=== PATIENT | male | born 1995 | race Caucasian/White ===

== ENCOUNTER 2017-10-20 12:17 | Emergency (ER) | payer MEDICAID, OTHER ==
[~2017-10-20] VITALS: Ht 175.3 cm; Wt 68.0 kg
[2017-10-20 12:34] VITALS: BP 147/88
[2017-10-20] MEDS ORDERED: IBUPROFEN 800MG TABLET PO ONE (14:45)
== END 2017-10-20 15:46 | disposition left against medical advice (07) ==
LOC: ER 13:06
DX: S93.402A Sprain of unspecified ligament of left ankle, initial encounter (principal); X58.XXXA Exposure to other specified factors, initial encounter; Y93.89 Activity, other specified; Y92.89 Other specified places as the place of occurrence of the external cause; Y99.8 Other external cause status
CPT/HCPCS: 73610; 99284

== ENCOUNTER 2017-12-04 09:15 | Emergency (ER) | payer OTHER | END 2017-12-04 09:43 | disposition left against medical advice (07) | LOC: ER 09:15 | DX: Z53.21 Procedure and treatment not carried out due to patient leaving prior to being seen by health care provider (principal) ==

== ENCOUNTER 2022-09-24 05:16 | Emergency (ER) | payer OTHER ==
[2022-09-24 05:23] VITALS: PULSE 85
== END 2022-09-24 08:08 | disposition left against medical advice (07) ==
LOC: ER 05:16
DX: Z53.21 Procedure and treatment not carried out due to patient leaving prior to being seen by health care provider (principal)
CPT/HCPCS: 99281

== ENCOUNTER 2023-06-24 01:51 | Emergency (ER) | payer SELFPAY ==
[~2023-06-24] VITALS: Ht 175.3 cm; Wt 91.0 kg
[2023-06-24 01:56] VITALS: BP 189/117; TEMP 98.7; O2SAT 100
[2023-06-24 02:34] LABS: BASOPHILS % 0.9 % (0.0-2.0); EOSINOPHILS % 2.7 % (0.0-5.0); HEMATOCRIT. 50.6 % (42.0-52.0); HEMOGLOBIN. 17.8 g/dL (14.0-18.0); LYMPHOCYTES % 34.8 % (20.0-50.0); MEAN CORPUSCULAR HEMOGLOBIN 31.3 pg (28.0-32.0); MEAN CORPUSCULAR HGB CONC 35.2 g/dL (31.0-37.0); MEAN CORPUSCULAR VOLUME 89.1 fL (80.0-94.0); MEAN PLATELET VOLUME 7.3 fl (7.4-10.4); MONOCYTES % 10.9 % (2.0-8.0); NEUTROPHILS % 50.7 % (40.0-76.0); PLATELET 334 x1000/uL (130-400); RED BLOOD CELL COUNT 5.68 mill/uL (4.7-6.1); RED CELL DISTRIBUTION WIDTH 12.6 % (11.6-14.6); WHITE BLOOD COUNT 7.5 x1000/uL (4.5-11.0)
[2023-06-24 02:35] LABS: CHLORIDE 98 mEq/L (98-107); POTASSIUM 3.5 mEq/L (3.5-5.1); SODIUM 136 mEq/L (136-145)
[2023-06-24 02:36] LABS: CARBON DIOXIDE 28 mEq/L (21-32)
[2023-06-24 02:42] LABS: GLUCOSE 109 mg/dL (70-105)
[2023-06-24 02:53] LABS: TROPONIN I HIGH SENSITIVITY < 4 ng/L (3.0-53); UREA NITROGEN BLOOD < 5 mg/dL (9-23)
[2023-06-24 07:44] VITALS: PULSE 92; RESP 18
[2023-06-24 08:25] LABS: CLARITY URINE CLEAR (CLEAR); COLOR URINE DARK YELLOW (YELLOW); GLUCOSE URINE NEGATIVE (NEGATIVE); KETONES URINE TRACE (NEGATIVE); LEUKOCYTE ESTERASE URINE TRACE (NEGATIVE); NITRITE URINE NEGATIVE (NEGATIVE); OCCULT BLOOD URINE NEGATIVE (NEGATIVE); PROTEIN URINE 1+ (NEGATIVE); SPECIFIC GRAVITY URINE 1.017 (1.005-1.030)
[2023-06-24 08:55] LABS: MUCUS URINE 1+ /lpf (NONE/TRACE); SQUAMOUS EPITHELIAL CELL URINE RARE /lpf (RARE/1+)
[2023-06-24 08:56] LABS: WBC URINE 0-2 /hpf (0-2)
[2023-06-24 09:05] LABS: BACTERIA URINE TRACE; RBC URINE 0-2 /hpf (0-2)
== END 2023-06-24 08:03 | disposition home or self-care (01) ==
LOC: ER 01:58
DX: R00.2 Palpitations (principal); R07.89 Other chest pain; F41.9 Anxiety disorder, unspecified
CPT/HCPCS: 36415; 71045; 80048; 81003; 84484; 85025; 93005; 99285